=== PATIENT | female | born 1995 | race Asian ===

== ENCOUNTER 2024-03-06 22:44 | Emergency (ER) | payer MEDICAID ==
[~2024-03-06] VITALS: Ht 160 cm; Wt 54.4 kg
[2024-03-06 22:58] VITALS: BP_SYST 129; PULSE 80; RESP 16; TEMP 97.5; O2SAT 100
[2024-03-07 02:54] VITALS: BP_SYST 114; PULSE 60; RESP 20; TEMP 98; O2SAT 100
== END 2024-03-07 02:54 | disposition home or self-care (01) ==
LOC: SED 22:44
DX: J98.2 Interstitial emphysema (principal); R22.0 Localized swelling, mass and lump, head
CPT/HCPCS: 81025; 99282

== ENCOUNTER 2024-03-08 18:03 | Emergency (ER) | payer MEDICAID ==
[~2024-03-08] VITALS: Ht 160 cm; Wt 54.4 kg
[2024-03-08 18:19] VITALS: BP_SYST 142; PULSE 86; RESP 18; TEMP 98.1; O2SAT 100
[2024-03-08 20:08] LABS: BILIRUBIN,URINE NEGATIVE (NEGATIVE); BLOOD, URINE NEGATIVE (NEGATIVE); CLARITY/URINE CLEAR (CLEAR); COLOR,URINE YELLOW (YELLOW); GLUCOSE,URINE NEGATIVE (NEGATIVE); KETONES,URINE NEGATIVE (NEGATIVE); LEUKOCYTE ESTERASE ,URINE NEGATIVE (NEGATIVE); NITRITE, URINE NEGATIVE (NEGATIVE); PROTEIN URINE NEGATIVE (NEGATIVE); UROBILINOGEN,URINE 0.2 (0.2-1.0)
[2024-03-08 20:18] LABS: BASOPHILS % (AUTO) 0.5 % (0.0-2.0); EOSINOPHILS % (AUTO) 0.7 % (0.0-4.0); HEMATOCRIT 30.1 % (36-48); HEMOGLOBIN 9.7 g/dL (12.0-16.0); LYMPHOCYTES # (AUTO) 2.4 K/uL (1.0-5.5); LYMPHOCYTES % (AUTO) 32.9 % (20.5-51.5); MEAN CORPUSCULAR HEMOGLOBIN 22 pg (27-31); MEAN CORPUSCULAR HGB CONC 32 % (32-36); MEAN CORPUSCULAR VOLUME 67 fL (79.0-98.0); MONOCYTES # (AUTO) 0.5 K/uL (0.0-1.0); NEUTROPHILS # (AUTO) 4.3 K/uL (1.8-7.7); NEUTROPHILS % (AUTO) 58.9 % (40.0-70.0); PLATELET COUNT (AUTO) 243 K/uL (130-430); RED BLOOD CELL COUNT(AUTO) 4.51 MIL/uL (4.2-6.2); RED CELL DISTRIBUTION WIDTH 15.9 % (9.0-15.0); WHITE BLOOD COUNT (AUTO) 7.2 K/uL (4.8-10.8)
[2024-03-08 20:20] LABS: CALCIUM 8.6 mg/dL (8.4-11.0); CREATININE 0.8 mg/dL (0.55-1.30); POTASSIUM 4.3 mmol/L (3.5-5.1)
[2024-03-08 20:35] LABS: ANISOCYTOSIS 1+
[2024-03-08 20:36] LABS: OVALOCYTES MODERATE
[2024-03-08 22:26] VITALS: BP_SYST 108; PULSE 70; RESP 18; TEMP 97.9; O2SAT 100
== END 2024-03-08 22:26 | disposition home or self-care (01) ==
LOC: SED 18:03
DX: R22.0 Localized swelling, mass and lump, head (principal); R20.2 Paresthesia of skin; R13.10 Dysphagia, unspecified
CPT/HCPCS: 99285; 70450; 80048; 81001; 85025; 36415; 70491; 81025; 81003; Q9967